=== PATIENT | male | born 1965 | race African-American/Black ===

== ENCOUNTER 2018-07-09 16:07 | Emergency (ER) | payer OTHER ==
[~2018-07-09] VITALS: Ht 180.3 cm; Wt 117.9 kg
[~2018-07-09 16:07] MED LIST: ATEN1TAB PO; INSU100S22 SUBQ; METF850T PO
[2018-07-09 16:09] VITALS: BP 153/91
--- NOTE | 2018-07-09 16:19 | NUR ---
PT AMBULATED TO ER BED 08
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
--- NOTE | 2018-07-09 16:26 | NUR ---
PT POSITIONED FOR COMFORT. WILL CONTINUE TO MONITOR
[2018-07-09] MEDS ORDERED: KETOROLAC 60 MG/2 ML VIAL IM ONE (16:30)
--- NOTE | 2018-07-09 16:30 | NUR ---
Patient being evaluated by physician at bedside.
--- NOTE | 2018-07-09 16:54 | NUR ---
XRAY AT BEDSIDE
--- NOTE | 2018-07-09 17:16 | NUR ---
Applied fiona wrap to patients right knee, PMSC's assessed and within normal limits. Patient given crutches, adjusted to appropriate height, patient was educated on proper use of cruthches, had no further questions.
--- NOTE | 2018-07-09 17:18 | NUR ---
COLOR WNL WITH BRISCK CAP REFILL S/P ARYAN WRAP APPLICATION. POS SENSATION
[2018-07-09 17:21] VITALS: BP 150/90
--- NOTE | 2018-07-09 17:21 | NUR ---
Patient discharged with v/s stable. Written and verbal after care instructions given and explained. Patient alert, oriented and verbalized understanding of instructions. AmbulatoryWITH ASSISTIVE DEVICE with steady gait. All questions addressed prior to discharge. ID band removed. Patient advised to follow up with PMD. Rx of TRAMADOL, MOTRIN given. Patient educated on indication of medication including possible reaction and side effects. Opportunity to ask questions provided and answered.
== END 2018-07-09 17:21 | disposition home or self-care (01) ==
LOC: MED 16:07
DX: S80.01XA Contusion of right knee, initial encounter (principal); E11.9 Type 2 diabetes mellitus without complications; I10 Essential (primary) hypertension; Z79.4 Long term (current) use of insulin; Z79.899 Other long term (current) drug therapy; V09.9XXA Pedestrian injured in unspecified transport accident, initial encounter; Y93.89 Activity, other specified; Y92.89 Other specified places as the place of occurrence of the external cause; Y99.8 Other external cause status
CPT/HCPCS: 73562; 96372; 99284; J1885; Q0092

== ENCOUNTER 2019-12-20 08:07 | Emergency (ER) | payer SELFPAY ==
[~2019-12-20] VITALS: Ht 177.8 cm; Wt 113.4 kg
[2019-12-20 08:27] VITALS: BP 159/80
[2019-12-20] MEDS ORDERED: FAMOTIDINE 20 MG TAB PO ONE (08:45)
[2019-12-20 10:11] VITALS: BP 149/94
--- NOTE | 2019-12-20 10:13 | NUR ---
Stable VSS Denies discomfort Hickups have decreased MD has reassessed and Dc'd home To exit
== END 2019-12-20 10:12 | disposition home or self-care (01) ==
LOC: MED 08:07
DX: R06.6 Hiccough (principal); K21.9 Gastro-esophageal reflux disease without esophagitis; K11.1 Hypertrophy of salivary gland; E11.9 Type 2 diabetes mellitus without complications; Z79.899 Other long term (current) drug therapy
CPT/HCPCS: 76881; 99284; Q0092

== ENCOUNTER 2021-02-08 18:54 | Emergency (ER) | payer BC, MEDICAID ==
[~2021-02-08] VITALS: Ht 177.8 cm; Wt 108.9 kg
[2021-02-08 18:55] VITALS: BP 170/97
--- NOTE | 2021-02-08 19:10 | NUR ---
DR. LAMAS AT BEDSIDE FOR EXAM
--- NOTE | 2021-02-08 19:20 | NUR ---
RECEIVED PT IN BED 5 WITH C/O SOB AND HICCOUGHS. PT STATES "SARI HAD HICCOUGHS X 3 WEEKS. "I FELT SOB TODAY, BUT SOON I GOT TO THE ER I FEEL BETTER". PT APPEARS VERY ANXIOUS. IN NAD. SKIN IS WARM AND DRY
[2021-02-08] MEDS ORDERED: ALPRAZolam 0.5 MG TAB PO STA (19:23)
[2021-02-08 19:37] LABS: HEMATOCRIT 41.1 % (36-52); HEMOGLOBIN 12.8 g/dL (12.0-18.0); MEAN CORPUSCULAR HEMOGLOBIN 20 pg (27-31); MEAN CORPUSCULAR HGB CONC 31 g/dL (33-37); MEAN CORPUSCULAR VOLUME 65.8 fL (80-94); PLATELET COUNT (AUTO) 276 K/uL (140-450); RED BLOOD CELL COUNT(AUTO) 6.25 MIL/uL (4.20-6.10); RED CELL DISTRIBUTION WIDTH 24.2 % (11.6-13.7); WHITE BLOOD COUNT (AUTO) 9.3 K/uL (4.8-10.8)
[2021-02-08 19:51] LABS: ALBUMIN 3.6 g/dL (3.4-5.0); ANION GAP 11.8 (8-16); CARBON DIOXIDE 26.6 mmol/L (21-32); CREATININE 1.1 mg/dL (0.6-1.3); POTASSIUM 4.4 mmol/L (3.5-5.1); TOTAL BILIRUBIN 0.7 mg/dL (0.0-1.0)
[2021-02-08 19:57] LABS: LYMPHOCYTES % (MANUAL) 9 % (20-46); MONOCYTES % (MANUAL) 2 % (5-12)
[2021-02-08] MEDS ORDERED: ALPR0.5T20 PO (20:06)
[2021-02-08 20:25] VITALS: BP 170/97
== END 2021-02-08 20:25 | disposition home or self-care (01) ==
LOC: MED 18:54
DX: R06.6 Hiccough (principal); E11.9 Type 2 diabetes mellitus without complications; K21.9 Gastro-esophageal reflux disease without esophagitis; Z79.899 Other long term (current) drug therapy; Z79.84 Long term (current) use of oral hypoglycemic drugs
CPT/HCPCS: 36415; 71045; 80053; 83880; 84484; 85025; 93005; 99285